=== PATIENT | female | born 1935 | race Caucasian/White ===

== ENCOUNTER 2018-06-08 05:52 | Emergency (ER) | payer OTHER ==
[~2018-06-08] VITALS: Ht 162.6 cm; Wt 59.0 kg
[2018-06-08 05:56] VITALS: BP_SYST 115
--- NOTE | 2018-06-08 06:05 | NUR ---
Patient to ER bed 7 to gown for evaluation. Side rails up. Report given to SON.
[2018-06-08] MEDS ORDERED: methylPREDNISolone SOD SUCC/PF 62.5 MG/ML VIAL IM ONE (06:15)
[2018-06-08] MEDS ORDERED: DIPHENHYDRAMINE INJ 50 MG/ML VIAL IM ONE (06:15)
--- NOTE | 2018-06-08 06:25 | NUR ---
PATIENT PRESENTS WITH RED RASH TO ENTIRE BODY, UNSURE OF WHAT MAY HAVE CAUSED IT. STATES SHE TOOK 50MG OF BENADRYL AT 5PM, THEN 50 MORE MG OF BENADRYL AT 1030PM LAST NIGHT.
--- NOTE | 2018-06-08 06:26 | NUR ---
ER at bedside examining patient.
[2018-06-08 06:34] VITALS: BP_SYST 105
--- NOTE | 2018-06-08 06:40 | NUR ---
Patient given written and verbal discharge instructions and verbalizes understanding. VASQUEZ FELDMAN MD discussed with patient the results and treatment provided. Patient in stable condition. ID arm band removed. Rx of PREDNISONE given. Patient educated on pain management and to follow up with PMD. Pain Scale 0/10. Opportunity for questions provided and answered. Medication side effect fact sheet provided.
== END 2018-06-08 06:40 | disposition home or self-care (01) ==
LOC: SED 05:52
DX: L50.9 Urticaria, unspecified (principal); I10 Essential (primary) hypertension; Z88.1 Allergy status to other antibiotic agents
CPT/HCPCS: 96372; 99284; J1200; J2930

== ENCOUNTER 2018-08-03 14:42 | Inpatient (IN) | payer OTHER ==
[~2018-08-03] VITALS: Ht 162.6 cm; Wt 61.7 kg
[2018-08-03] MEDS ORDERED: NACL 0.9% 1,000 ML IV ONE ×2 (14:46→17:30)
[2018-08-03] MEDS ORDERED: ASPIRIN 81 MG TAB.CHEW PO ONE (15:00)
[2018-08-03 15:03] VITALS: BP_SYST 133
[2018-08-03 15:25] LABS: BASOPHILS # (AUTO) 0.1 K/uL (0.0-0.2); BASOPHILS % (AUTO) 0.7 % (0.0-2.0); EOSINOPHILS # (AUTO) 0.3 K/uL (0.0-0.4); EOSINOPHILS % (AUTO) 1.5 % (0.0-4.0); HEMATOCRIT 46.5 % (36-48); HEMOGLOBIN 15.5 g/dL (12.0-16.0); LYMPHOCYTES # (AUTO) 2.8 K/uL (1.0-5.5); LYMPHOCYTES % (AUTO) 16.8 % (20.5-51.5); MEAN CORPUSCULAR HEMOGLOBIN 30 pg (27-31); MEAN CORPUSCULAR HGB CONC 33 % (32-36); MEAN CORPUSCULAR VOLUME 90 fL (79.0-98.0); MONOCYTES # (AUTO) 1.4 K/uL (0.0-1.0); MONOCYTES % (AUTO) 8.4 % (1.7-9.3); NEUTROPHILS # (AUTO) 12.2 K/uL (1.8-7.7); NEUTROPHILS % (AUTO) 72.6 % (40.0-70.0); PLATELET COUNT (AUTO) 273 K/uL (130-430); RED CELL DISTRIBUTION WIDTH 13.6 % (9.0-15.0); WHITE BLOOD COUNT (AUTO) 16.8 K/uL (4.8-10.8)
[2018-08-03 15:38] LABS: ANION GAP 13 (5-15); CALCIUM 9.3 mg/dL (8.4-11.0); CHLORIDE 102 mmol/L (98-107); CREATININE 0.81 mg/dL (0.55-1.30); GLUCOSE 119 mg/dL (70-99); POTASSIUM 3.5 mmol/L (3.5-5.1); SODIUM SERUM 137 mmol/L (136-145); UREA NITROGEN, BLOOD 15 mg/dL (8-21)
[2018-08-03 15:42] LABS: ALANINE AMINOTRANSFERASE 24 U/L (12-78); ALBUMIN 3.7 g/dL (3.4-4.8); ASPARTATE AMINOTRANSFERASE 18 U/L (10-37); LIPASE 70 U/L (73-393); TOTAL BILIRUBIN 0.9 mg/dL (0.0-1.0)
[2018-08-03 15:45] LABS: PROTHROMBIN TIME 9.9 SECS (9.5-12.5)
[2018-08-03 17:26] LABS: BILIRUBIN,URINE NEGATIVE (NEGATIVE); BLOOD, URINE 3+ (NEGATIVE); CLARITY/URINE CLEAR (CLEAR); COLOR,URINE YELLOW (YELLOW); GLUCOSE,URINE NEGATIVE (NEGATIVE); KETONES,URINE 1+ (NEGATIVE); LEUKOCYTE ESTERASE ,URINE TRACE (NEGATIVE); NITRITE, URINE NEGATIVE (NEGATIVE); PH,URINE 5.5 (5.0-8.0); PROTEIN URINE NEGATIVE (NEGATIVE); UROBILINOGEN,URINE 0.2 (0.2-1.0)
[2018-08-03 18:29] LABS: BACTERIA,URINE FEW /HPF (None Seen); MUCUS,URINE None Seen /LPF (None Seen); WBC,URINE 0-3 /HPF (0-3); YEAST,URINE None Seen /HPF (None Seen)
[2018-08-03] MEDS ORDERED: DILT240C91 PO (18:44)
[2018-08-03] MEDS ORDERED: METO50TA7 PO (18:44)
[2018-08-03] MEDS ORDERED: CALC-995 PO (18:44)
[2018-08-03] MEDS ORDERED: OXYB10TA4 PO (18:44)
[2018-08-03] MEDS ORDERED: LIP20 PO (18:44)
[2018-08-03] MEDS ORDERED: LISI-209 PO (18:44)
[2018-08-03] MEDS: PANTOPRAZOLE SODIUM 40 MG/VIAL (PROTONIX) IVP SCH ×2 (19:00→21:10)
[2018-08-03] MEDS ORDERED: DILTIAZEM HCL 240 MG CAP.SR.24H PO SCH (19:30)
[2018-08-03 20:00] VITALS: BP_SYST 139
[2018-08-03] MEDS: LR 1,000 ML IV SCH (21:09)
[2018-08-03] MEDS: OXYBUTYNIN CHLORIDE 5 MG TABLET PO SCH (21:09)
[2018-08-03] MEDS ORDERED: metroNIDAZOLE 500 mg/NS 200 ML IV ONE (22:01)
[2018-08-03] MEDS: metroNIDAZOLE 500 mg/NS 100 ML IV SCH (22:31)
[2018-08-03 23:40] VITALS: BP_SYST 139
[2018-08-04 00:13] VITALS: BP_SYST 126
[2018-08-04] MEDS: metroNIDAZOLE 500 mg/NS 100 ML IV SCH ×3 (06:08→21:09)
[2018-08-04 07:30] LABS: BASOPHILS % (AUTO) 0.1 % (0.0-2.0); EOSINOPHILS # (AUTO) 0.1 K/uL (0.0-0.4); EOSINOPHILS % (AUTO) 0.6 % (0.0-4.0); HEMATOCRIT 42.5 % (36-48); HEMOGLOBIN 14.5 g/dL (12.0-16.0); LYMPHOCYTES # (AUTO) 1.4 K/uL (1.0-5.5); LYMPHOCYTES % (AUTO) 9.8 % (20.5-51.5); MEAN CORPUSCULAR HEMOGLOBIN 31 pg (27-31); MEAN CORPUSCULAR HGB CONC 34 % (32-36); MEAN CORPUSCULAR VOLUME 89 fL (79.0-98.0); MONOCYTES # (AUTO) 1.1 K/uL (0.0-1.0); NEUTROPHILS # (AUTO) 11.4 K/uL (1.8-7.7); PLATELET COUNT (AUTO) 249 K/uL (130-430); RED BLOOD CELL COUNT(AUTO) 4.75 MIL/uL (4.2-6.2); RED CELL DISTRIBUTION WIDTH 13.3 % (9.0-15.0)
[2018-08-04 07:46] LABS: ANION GAP 13 (5-15); CALCIUM 8.8 mg/dL (8.4-11.0); CHLORIDE 107 mmol/L (98-107); CREATININE 0.64 mg/dL (0.55-1.30); GLUCOSE 97 mg/dL (70-99); POTASSIUM 3.3 mmol/L (3.5-5.1); SODIUM SERUM 141 mmol/L (136-145); UREA NITROGEN, BLOOD 7 mg/dL (8-21)
[2018-08-04 08:00] VITALS: BP_SYST 159
[2018-08-04] MEDS ORDERED: DIATR MEGLU/DIATRIZ SOD 30 ML SOLUTION PO ONE (08:06)
[2018-08-04] MEDS: LISINOPRIL 5 MG TABLET PO SCH (08:45)
[2018-08-04] MEDS: PANTOPRAZOLE SODIUM 40 MG/VIAL (PROTONIX) IVP SCH ×2 (08:45→20:26)
[2018-08-04] MEDS: METOPROLOL SUCCINATE 50 MG TAB.SR.24H (TOPROL XL) PO SCH (08:46)
[2018-08-04] MEDS: ATORVASTATIN 20 MG TABLET PO SCH (08:46)
[2018-08-04] MEDS: OXYBUTYNIN CHLORIDE 5 MG TABLET PO SCH ×3 (08:46→20:26)
[2018-08-04] MEDS: DILTIAZEM HCL 240 MG CAP.SR.24H PO SCH (08:47)
[2018-08-04] MEDS ORDERED: NON-FORMULARY MEDICATION (Calcium Carb & Cit/Vitamin D3 (Calcium + D3 Er Tablet) 1 EACH) PO SCH (09:00)
[2018-08-04] MEDS: LR 1,000 ML IV SCH ×2 (09:33→15:42)
[2018-08-04] MEDS ORDERED: IOHEXOL 100 ML IV ONE (11:10)
[2018-08-04 12:00] VITALS: BP_SYST 126
[2018-08-04 12:48] LABS: NEUTROPHILS % (AUTO) 81.5 % (40.0-70.0)
[2018-08-04] MEDS ORDERED: POTASSIUM CHLORIDE 20 MEQ TAB.PRT.SR PO ONE (13:30)
[2018-08-04 16:00] VITALS: BP_SYST 122
[2018-08-04] MEDS: LEVOFLOXACIN 500 MG/D5W 100 ML IV SCH (17:25)
[2018-08-04 20:00] VITALS: BP_SYST 130
[2018-08-05 01:55] VITALS: BP_SYST 123
[2018-08-05] MEDS: metroNIDAZOLE 500 mg/NS 100 ML IV SCH ×2 (05:11→12:50)
[2018-08-05 07:31] LABS: BASOPHILS # (AUTO) 0.1 K/uL (0.0-0.2); BASOPHILS % (AUTO) 0.5 % (0.0-2.0); EOSINOPHILS # (AUTO) 0.1 K/uL (0.0-0.4); EOSINOPHILS % (AUTO) 1.1 % (0.0-4.0); HEMOGLOBIN 13.6 g/dL (12.0-16.0); LYMPHOCYTES # (AUTO) 1.7 K/uL (1.0-5.5); LYMPHOCYTES % (AUTO) 13.3 % (20.5-51.5); MEAN CORPUSCULAR HEMOGLOBIN 30 pg (27-31); MEAN CORPUSCULAR HGB CONC 32 % (32-36); MEAN CORPUSCULAR VOLUME 92 fL (79.0-98.0); MONOCYTES # (AUTO) 1.3 K/uL (0.0-1.0); MONOCYTES % (AUTO) 10.1 % (1.7-9.3); NEUTROPHILS # (AUTO) 9.5 K/uL (1.8-7.7); PLATELET COUNT (AUTO) 259 K/uL (130-430); RED BLOOD CELL COUNT(AUTO) 4.57 MIL/uL (4.2-6.2); RED CELL DISTRIBUTION WIDTH 13.6 % (9.0-15.0); WHITE BLOOD COUNT (AUTO) 12.7 K/uL (4.8-10.8)
[2018-08-05 07:59] LABS: ALANINE AMINOTRANSFERASE 18 U/L (12-78); ALBUMIN 3.2 g/dL (3.4-4.8); ANION GAP 14 (5-15); ASPARTATE AMINOTRANSFERASE 18 U/L (10-37); CHLORIDE 103 mmol/L (98-107); CREATININE 0.62 mg/dL (0.55-1.30); GLUCOSE 105 mg/dL (70-99); POTASSIUM 3.9 mmol/L (3.5-5.1); SODIUM SERUM 139 mmol/L (136-145); TOTAL BILIRUBIN 0.8 mg/dL (0.0-1.0); UREA NITROGEN, BLOOD 4 mg/dL (8-21)
[2018-08-05 08:00] VITALS: BP_SYST 132
[2018-08-05] MEDS: DILTIAZEM HCL 240 MG CAP.SR.24H PO SCH (09:48)
[2018-08-05] MEDS: PANTOPRAZOLE SODIUM 40 MG/VIAL (PROTONIX) IVP SCH (09:48)
[2018-08-05] MEDS: OXYBUTYNIN CHLORIDE 5 MG TABLET PO SCH ×2 (09:49→17:14)
[2018-08-05] MEDS: ATORVASTATIN 20 MG TABLET PO SCH (09:49)
[2018-08-05] MEDS: LISINOPRIL 5 MG TABLET PO SCH (09:49)
[2018-08-05] MEDS: METOPROLOL SUCCINATE 50 MG TAB.SR.24H (TOPROL XL) PO SCH (09:50)
[2018-08-05] MEDS ORDERED: CALCIUM CARBONATE/VITAMIN D3 1 TAB TABLET PO ONE (10:30)
[2018-08-05 12:45] VITALS: BP_SYST 150
[2018-08-05] MEDS: LR 1,000 ML IV SCH (12:50)
[2018-08-05] MEDS ORDERED: LEVO250T2 PO (14:26)
[2018-08-05] MEDS ORDERED: FLA250 PO (14:27)
[2018-08-05] MEDS ORDERED: LACT1CAP71 PO (14:28)
[2018-08-05 16:51] VITALS: BP_SYST 139
[2018-08-05] MEDS: LEVOFLOXACIN 500 MG/D5W 100 ML IV SCH (17:04)
[2018-08-05 17:17] VITALS: BP_SYST 139
[2018-08-06] MEDS ORDERED: CALCIUM CARBONATE/VITAMIN D3 1 TAB TABLET PO SCH (09:00)
== END 2018-08-05 18:40 | disposition home or self-care (01) | DRG 872 ==
LOC: SED 14:42 → STU 17:40 → SMU 08-04 17:59
PROVIDERS: ADMIT Internal Medicine; ATTEND Internal Medicine
DX: A41.9 Sepsis, unspecified organism (principal); K62.5 Hemorrhage of anus and rectum; E78.5 Hyperlipidemia, unspecified; I10 Essential (primary) hypertension; F19.10 Other psychoactive substance abuse, uncomplicated; N32.81 Overactive bladder; M19.90 Unspecified osteoarthritis, unspecified site; G62.9 Polyneuropathy, unspecified; K64.9 Unspecified hemorrhoids; I34.1 Nonrheumatic mitral (valve) prolapse; K52.9 Noninfective gastroenteritis and colitis, unspecified; Z88.1 Allergy status to other antibiotic agents; Z88.2 Allergy status to sulfonamides; Z79.899 Other long term (current) drug therapy
CPT/HCPCS: 36415; 71045; 80048; 80053; 81000-TC; 82272; 82550-TC; 83605; 83690-TC; 84484; 85025; 85610-TC; 85730-TC; 87040-TC; 87045-TC; 87046; 87086; 87177; 87230-TC; 89055; 93005; 96361; 96365; 99285; C9113; G0378; J1956; J3490; J7030; J7120; Q9964; Q9967

== ENCOUNTER 2021-07-23 08:25 | Observation (INO) | payer OTHER, SELFPAY ==
[~2021-07-23] VITALS: Ht 160 cm; Wt 60.3 kg
[~2021-07-23 08:25] MED LIST: CALC-995 PO; DILT240C91 PO; FLA250 PO; LACT1CAP71 PO; LEVO250T2 PO; LIP20 PO; LISI-209 PO; METO50TA7 PO; OXYB10TA4 PO
[2021-07-23 08:30] VITALS: BP_SYST 147
[2021-07-23 09:37] LABS: BASOPHILS % (AUTO) 0.4 % (0.0-2.0); EOSINOPHILS # (AUTO) 0.1 K/uL (0.0-0.4); EOSINOPHILS % (AUTO) 0.8 % (0.0-4.0); HEMATOCRIT 41.6 % (36-48); HEMOGLOBIN 14.3 g/dL (12.0-16.0); LYMPHOCYTES # (AUTO) 1.5 K/uL (1.0-5.5); LYMPHOCYTES % (AUTO) 15.8 % (20.5-51.5); MEAN CORPUSCULAR HEMOGLOBIN 31 pg (27-31); MEAN CORPUSCULAR HGB CONC 34 % (32-36); MEAN CORPUSCULAR VOLUME 89 fL (79.0-98.0); MONOCYTES # (AUTO) 0.8 K/uL (0.0-1.0); MONOCYTES % (AUTO) 8.3 % (1.7-9.3); NEUTROPHILS # (AUTO) 7.1 K/uL (1.8-7.7); NEUTROPHILS % (AUTO) 74.7 % (40.0-70.0); PLATELET COUNT (AUTO) 214 K/uL (130-430); RED BLOOD CELL COUNT(AUTO) 4.68 MIL/uL (4.2-6.2); RED CELL DISTRIBUTION WIDTH 14.1 % (9.0-15.0); WHITE BLOOD COUNT (AUTO) 9.5 K/uL (4.8-10.8)
[2021-07-23 11:14] LABS: SODIUM SERUM 140 mmol/L (136-145)
[2021-07-23 11:15] LABS: ALANINE AMINOTRANSFERASE 140 U/L (12-78); ALBUMIN 3.7 g/dL (3.4-4.8); ANION GAP 11 (5-15); ASPARTATE AMINOTRANSFERASE 106 U/L (10-37); CALCIUM 9.2 mg/dL (8.4-11.0); CHLORIDE 105 mmol/L (98-107); CREATININE 0.91 mg/dL (0.55-1.30); GLUCOSE 102 mg/dL (70-99); POTASSIUM 3.6 mmol/L (3.5-5.1); TOTAL BILIRUBIN 0.7 mg/dL (0.0-1.0); UREA NITROGEN, BLOOD 9 mg/dL (8-21)
[2021-07-23] MEDS ORDERED: ASPIRIN 325 MG TABLET PO ONE (13:30)
[2021-07-23] MEDS ORDERED: HYDROcodone/ACETAMIN 5-325 MG TAB (NORCO/ VICODIN) PO PRN (13:45)
[2021-07-23] MEDS ORDERED: MORPHINE 4 MG INJ. 4 MG/ML VIAL IVP PRN (13:45)
[2021-07-23] MEDS ORDERED: ATOR20TA64 PO (14:43)
[2021-07-23] MEDS ORDERED: OXYB5TAB16 PO (14:45)
[2021-07-23] MEDS ORDERED: METO50TA7 PO (14:46)
[2021-07-23] MEDS ORDERED: DILT240C91 PO (14:46)
[2021-07-23] MEDS ORDERED: NITR50CA51 PO (14:49)
[2021-07-23] MEDS ORDERED: MULT-1117 PO (14:49)
[2021-07-23] MEDS ORDERED: CALC-808 PO (14:49)
[2021-07-23 17:13] VITALS: BP_SYST 153
[2021-07-23 18:22] VITALS: BP_SYST 153
[2021-07-23 19:49] VITALS: BP_SYST 130
[2021-07-23 21:00] VITALS: BP_SYST 132
[2021-07-24] MEDS ORDERED: ONDANSETRON HCL 4 MG/2 ML VIAL IVP PRN (00:45)
[2021-07-24] MEDS ORDERED: LORazepam 2 MG/ML VIAL IVP PRN (00:45)
[2021-07-24] MEDS ORDERED: POTASSIUM CHLORIDE 40 MEQ, LIDOCAINE JECT 2% PF 100 MG 50 MG in NS 250 ML IV PRN (00:45)
[2021-07-24] MEDS ORDERED: MAGNESIUM SULFATE 50 ML IV PRN (00:45)
[2021-07-24 01:39] VITALS: BP_SYST 123
[2021-07-24] MEDS: DILTIAZEM HCL 240 MG CAP.SR.24H PO SCH ×2 (02:40→08:58)
[2021-07-24 06:58] LABS: BASOPHILS % (AUTO) 0.3 % (0.0-2.0); EOSINOPHILS # (AUTO) 0.2 K/uL (0.0-0.4); EOSINOPHILS % (AUTO) 3.3 % (0.0-4.0); HEMATOCRIT 40.4 % (36-48); HEMOGLOBIN 13.7 g/dL (12.0-16.0); LYMPHOCYTES # (AUTO) 1.7 K/uL (1.0-5.5); LYMPHOCYTES % (AUTO) 23.3 % (20.5-51.5); MEAN CORPUSCULAR HEMOGLOBIN 30 pg (27-31); MEAN CORPUSCULAR HGB CONC 34 % (32-36); MEAN CORPUSCULAR VOLUME 90 fL (79.0-98.0); MONOCYTES # (AUTO) 0.9 K/uL (0.0-1.0); MONOCYTES % (AUTO) 12.2 % (1.7-9.3); NEUTROPHILS # (AUTO) 4.5 K/uL (1.8-7.7); NEUTROPHILS % (AUTO) 60.9 % (40.0-70.0); PLATELET COUNT (AUTO) 203 K/uL (130-430); WHITE BLOOD COUNT (AUTO) 7.3 K/uL (4.8-10.8)
[2021-07-24 07:06] LABS: ANION GAP 10 (5-15); CALCIUM 7.7 mg/dL (8.4-11.0); CHLORIDE 108 mmol/L (98-107); GLUCOSE 100 mg/dL (70-99); POTASSIUM 4.2 mmol/L (3.5-5.1); SODIUM SERUM 138 mmol/L (136-145)
[2021-07-24 07:07] LABS: ALANINE AMINOTRANSFERASE 112 U/L (12-78); ALBUMIN 3.1 g/dL (3.4-4.8); ASPARTATE AMINOTRANSFERASE 95 U/L (10-37); PHOSPHORUS 3.5 mg/dL (2.7-4.5); TOTAL BILIRUBIN 0.6 mg/dL (0.0-1.0); UREA NITROGEN, BLOOD 7 mg/dL (8-21)
[2021-07-24 07:17] LABS: FREE T4 (FREE THYROXINE) 0.7 ng/dL (0.6-1.6); THYROID STIMULATING HORMONE 1.04 uIu/mL (0.34-4.82)
[2021-07-24] MEDS ORDERED: DILTIAZEM HCL 240 MG CAP.SR.24H PO ONE (07:45)
[2021-07-24] MEDS: ENOXAPARIN SODIUM 40 MG/0.4 ML SYRINGE SUBCUT SCH (08:54)
[2021-07-24] MEDS: MULTIVITAMINS TAB 1 TABLET PO SCH (08:55)
[2021-07-24] MEDS: CALCIUM CARBONATE/VITAMIN D3 1 TAB TABLET PO SCH (08:55)
[2021-07-24] MEDS: OXYBUTYNIN CHLORIDE 5 MG TABLET PO SCH (08:58)
[2021-07-24] MEDS: METOPROLOL SUCCINATE 50 MG TAB.SR.24H (TOPROL XL) PO SCH (08:59)
[2021-07-24 12:55] VITALS: BP_SYST 131
[2021-07-24 17:31] VITALS: BP_SYST 116
[2021-07-24] MEDS ORDERED: ATORVASTATIN 20 MG TABLET PO SCH (21:00)
[2021-07-24 21:04] VITALS: BP_SYST 106
[2021-07-24 21:06] VITALS: BP_SYST 122
[2021-07-24 21:08] VITALS: BP_SYST 107
[2021-07-25 00:15] VITALS: BP_SYST 104
[2021-07-25 00:27] LABS: BILIRUBIN,URINE NEGATIVE (NEGATIVE); BLOOD, URINE NEGATIVE (NEGATIVE); CLARITY/URINE CLEAR (CLEAR); COLOR,URINE YELLOW (YELLOW); GLUCOSE,URINE NEGATIVE (NEGATIVE); KETONES,URINE NEGATIVE (NEGATIVE); LEUKOCYTE ESTERASE ,URINE NEGATIVE (NEGATIVE); NITRITE, URINE NEGATIVE (NEGATIVE); PH,URINE 5.5 (5.0-8.0); PROTEIN URINE NEGATIVE (NEGATIVE); UROBILINOGEN,URINE 0.2 (0.2-1.0)
[2021-07-25 00:33] LABS: BARBITURATE, URINE NEGATIVE (NEG <=200); BENZODIAZEPINE, URINE POSITIVE (NEG <=150); CANNABINOID, URINE NEGATIVE (NEG <=50); COCAINE, URINE NEGATIVE (NEG <=150); METHAMPHETAMINES SCREEN,URINE NEGATIVE (NEG <=500); OPIATE, URINE NEGATIVE (NEG <=100); PHENCYCLIDINE SCREEN,URINE NEGATIVE (NEG <=25); URINE AMPHETAMINE NEGATIVE (NEG <=500); URINE METHADONE NEGATIVE (NEG <=200); URINE OXYCODONE SCREEN NEGATIVE (NEG <=100)
[2021-07-25 00:34] LABS: UR TRICYCLIC ANTIDEPRESSANTS NEGATIVE (NEG <=300); URINE PROPOXYPHENE SCREEN NEGATIVE (NEG <=300)
[2021-07-25 06:57] LABS: BASOPHILS % (AUTO) 0.4 % (0.0-2.0); EOSINOPHILS # (AUTO) 0.3 K/uL (0.0-0.4); EOSINOPHILS % (AUTO) 3.2 % (0.0-4.0); HEMATOCRIT 40.9 % (36-48); HEMOGLOBIN 13.9 g/dL (12.0-16.0); LYMPHOCYTES # (AUTO) 1.8 K/uL (1.0-5.5); MEAN CORPUSCULAR HEMOGLOBIN 31 pg (27-31); MEAN CORPUSCULAR HGB CONC 34 % (32-36); MEAN CORPUSCULAR VOLUME 90 fL (79.0-98.0); MONOCYTES # (AUTO) 1.1 K/uL (0.0-1.0); MONOCYTES % (AUTO) 13.1 % (1.7-9.3); NEUTROPHILS # (AUTO) 5.2 K/uL (1.8-7.7); NEUTROPHILS % (AUTO) 61.3 % (40.0-70.0); PLATELET COUNT (AUTO) 233 K/uL (130-430); RED BLOOD CELL COUNT(AUTO) 4.57 MIL/uL (4.2-6.2); RED CELL DISTRIBUTION WIDTH 14.1 % (9.0-15.0); WHITE BLOOD COUNT (AUTO) 8.4 K/uL (4.8-10.8)
[2021-07-25 08:00] VITALS: BP_SYST 130
[2021-07-25] MEDS: OXYBUTYNIN CHLORIDE 5 MG TABLET PO SCH (08:24)
[2021-07-25] MEDS: MULTIVITAMINS TAB 1 TABLET PO SCH (08:25)
[2021-07-25] MEDS: METOPROLOL SUCCINATE 50 MG TAB.SR.24H (TOPROL XL) PO SCH (08:25)
[2021-07-25] MEDS: CALCIUM CARBONATE/VITAMIN D3 1 TAB TABLET PO SCH (08:26)
[2021-07-25] MEDS: DILTIAZEM HCL 240 MG CAP.SR.24H PO SCH (08:26)
[2021-07-25] MEDS: ENOXAPARIN SODIUM 40 MG/0.4 ML SYRINGE SUBCUT SCH (08:27)
[2021-07-25 08:32] LABS: ALANINE AMINOTRANSFERASE 108 U/L (12-78); ALBUMIN 3.1 g/dL (3.4-4.8); ANION GAP 7 (5-15); ASPARTATE AMINOTRANSFERASE 82 U/L (10-37); CALCIUM 8.7 mg/dL (8.4-11.0); CHLORIDE 106 mmol/L (98-107); CREATININE 0.78 mg/dL (0.55-1.30); GLUCOSE 96 mg/dL (70-99); PHOSPHORUS 3.8 mg/dL (2.7-4.5); SODIUM SERUM 136 mmol/L (136-145); TOTAL BILIRUBIN 0.8 mg/dL (0.0-1.0); UREA NITROGEN, BLOOD 10 mg/dL (8-21)
[2021-07-25 11:46] VITALS: BP_SYST 130
[2021-07-25 13:22] VITALS: BP_SYST 130
== END 2021-07-25 12:25 | disposition home or self-care (01) ==
LOC: SED 08:25 → STU 13:34
DX: I95.1 Orthostatic hypotension (principal); Z20.822 Contact with and (suspected) exposure to COVID-19; I65.22 Occlusion and stenosis of left carotid artery; R42 Dizziness and giddiness; I34.1 Nonrheumatic mitral (valve) prolapse; K52.9 Noninfective gastroenteritis and colitis, unspecified; I49.3 Ventricular premature depolarization; I10 Essential (primary) hypertension; R06.00 Dyspnea, unspecified; R06.02 Shortness of breath; E78.5 Hyperlipidemia, unspecified; N32.81 Overactive bladder; R74.01 Elevation of levels of liver transaminase levels; J44.9 Chronic obstructive pulmonary disease, unspecified; E83.42 Hypomagnesemia; E44.1 Mild protein-calorie malnutrition; Z87.891 Personal history of nicotine dependence; Z79.899 Other long term (current) drug therapy
CPT/HCPCS: 36415; 70450-TC; 71045; 76376; 76700-TC; 80053; 80307; 81003; 83036; 83735; 83880; 84100; 84439; 84443; 84484; 85025; 93005; 93306; 93880; 96372; 96374; 97116-GP; 97530-GP; 99285; G0378; J1650; J2060

== ENCOUNTER 2023-01-19 16:27 | Emergency (ER) | payer OTHER ==
[~2023-01-19] VITALS: Ht 162.6 cm; Wt 49.9 kg
[~2023-01-19 16:27] MED LIST changes: +ATOR20TA64 PO; +CALC-808 PO; -CALC-995 PO; -FLA250 PO; -LACT1CAP71 PO; -LEVO250T2 PO; -LIP20 PO; -LISI-209 PO; +MULT-1117 PO; -OXYB10TA4 PO; +OXYB5TAB16 PO
[2023-01-19 17:42] VITALS: BP_SYST 137
--- NOTE | 2023-01-19 17:51 | NUR ---
Patient triaged and placed in waiting room. VSS and patient appears in no acute distress at this time. Accompanied by SELF, awaiting available bed, and MD notified of need for MSE.
[2023-01-19 18:14] VITALS: BP_SYST 137
--- NOTE | 2023-01-19 18:15 | NUR ---
DR. LOWERY AT BEDSIDE TO ASSESS PT.
--- NOTE | 2023-01-19 18:18 | NUR ---
Patient given written and verbal discharge instructions and verbalizes understanding. ER MD Lutz discussed with patient the results and treatment provided. Patient in stable condition. ID arm band removed. Patient educated on pain management and to follow up with PMD. Opportunity for questions provided and answered. Medication side effect fact sheet provided. Patient discharged a&ox4 and stable, walking out on her own with the assit of her walker.
== END 2023-01-19 18:18 | disposition home or self-care (01) ==
LOC: SED 16:27
DX: H53.9 Unspecified visual disturbance (principal); I10 Essential (primary) hypertension; Z88.1 Allergy status to other antibiotic agents; Z79.899 Other long term (current) drug therapy
CPT/HCPCS: 99281

== ENCOUNTER 2023-05-01 10:20 | Emergency (ER) | payer OTHER ==
[~2023-05-01] VITALS: Ht 160 cm; Wt 59.0 kg
[2023-05-01 10:23] VITALS: BP_SYST 142; PULSE 99; RESP 16; TEMP 98.1; O2SAT 98
== END 2023-05-01 12:30 | disposition left against medical advice (07) ==
LOC: SED 10:20
DX: S80.861D Insect bite (nonvenomous), right lower leg, subsequent encounter (principal); Z53.21 Procedure and treatment not carried out due to patient leaving prior to being seen by health care provider; W57.XXXD Bitten or stung by nonvenomous insect and other nonvenomous arthropods, subsequent encounter
CPT/HCPCS: 99281